=== PATIENT | female | born 1975 | race Caucasian/White ===

== ENCOUNTER 2016-08-27 23:54 | Inpatient (IN) | payer MEDICAID ==
[2016-08-28] MEDS ORDERED: NORMAL SALINE 1000 ML 1,000 ML IV ONE ×2 (00:14→03:47)
[2016-08-28] MEDS ORDERED: ONDANSETRON 4 MG TAB.RAPDIS PO ONE (00:14)
[2016-08-28] MEDS ORDERED: DIPHENHYDRAMINE HCL 50 MG/ML VIAL IV ONE (01:38)
[2016-08-28] MEDS ORDERED: METOCLOPRAMIDE HCL INJ/PF 10 MG/2 ML SDV IV ONE (01:38)
[2016-08-28 01:56] LABS: BLOOD UREA NITROGEN 19 mg/dL (7-20); CALCIUM 9.8 mg/dL (8.4-10.2); CREATININE RESULT 0.57 mg/dL (0.52-1.25); GLUCOSE 208 mg/dL (75-110)
[2016-08-28 01:57] LABS: ALANINE AMINOTRANSFERASE 39 U/L (9-52); ALBUMIN 4.4 g/dL (3.5-5.0); ALKALINE PHOSPHATASE 72 U/L (38-126); ANION GAP 15 (5-19); ASPARTATE AMINO TRANSFERASE 26 U/L (14-36); BILIRUBIN,DIRECT 0.1 mg/dL (0.0-0.4); BILIRUBIN,TOTAL 0.5 mg/dL (0.2-1.3); CARBON DIOXIDE 23 mmol/L (22-30); CHLORIDE 103 mmol/L (98-107); LIPASE 198.4 U/L (23-300); POTASSIUM 3.6 mmol/L (3.6-5.0); SODIUM 140.6 mmol/L (137-145); TOTAL PROTEIN 6.8 g/dL (6.3-8.2)
[2016-08-28 02:00] LABS: HEMATOCRIT 37.1 % (36.0-47.0); HEMOGLOBIN 12.3 g/dL (12.0-15.5); HGB HCT DIFFERENCE -0.2; MEAN CORPUSCULAR HEMOGLOBIN 28.6 pg (27.0-33.4); MEAN CORPUSCULAR HGB CONC 33.3 g/dL (32.0-36.0); MEAN CORPUSCULAR VOLUME 86 fl (80-97); RED BLOOD COUNT 4.31 10^6/uL (3.72-5.28); RED CELL DISTRIBUTION WIDTH 14.5 % (11.5-14.0); WHITE BLOOD COUNT 21.2 10^3/uL (4.0-10.5)
[2016-08-28] MEDS ORDERED: MORPHINE SULFATE 10 MG/ML INJ IV ONE (02:02)
[2016-08-28] MEDS ORDERED: ONDANSETRON HCL INJ/PF 4 MG/2 ML SDV IV ONE (02:02)
[2016-08-28 02:08] LABS: BAND NEUTROPHILS % (MANUAL) 3 % (3-5); BASOPHILS % (MANUAL) 0 % (0-2); EOSINOPHILS % (MANUAL) 0 % (0-6); LYMPHOCYTES % (MANUAL) 13 % (13-45); TOTAL CELLS COUNTED 100
[2016-08-28 02:09] LABS: PLATELET CLUMPS PRESENT; RBC MORPHOLOGY COMMENT NORMO-CYTIC/CHROMIC; TOXIC GRANULATION SLIGHT; TOXIC VACUOLATION PRESENT
[2016-08-28 02:54] LABS: APPEARANCE,URINE CLEAR; BILIRUBIN,URINE NEGATIVE (NEGATIVE); GLUCOSE, URINE >=500 mg/dL (NEGATIVE); KETONES,URINE 20 mg/dL (NEGATIVE); LEUKOCYTE ESTERASE,URINE NEGATIVE (NEGATIVE); NITRITE,URINE NEGATIVE (NEGATIVE); PROTEIN,URINE NEGATIVE (NEGATIVE); URINE SPECIFIC GRAVITY 1.005; UROBILINOGEN,URINE NEGATIVE mg/dL (<2.0)
[2016-08-28 03:12] LABS: URINE BARBITURATES SCREEN NEGATIVE; URINE METHADONE SCREEN NEGATIVE; URINE OPIATES LOW NEGATIVE; URINE PHENCYCLIDINE SCREEN NEGATIVE
[2016-08-28] MEDS ORDERED: HYDROMORPHONE HCL INJ/PF 2 MG/ML AMPULE IV ONE ×2 (03:46→04:01)
[2016-08-28] MEDS ORDERED: PIPERACILLIN/TAZOBACTAM 3.375 GM VIAL IV ONE (04:03)
--- NOTE | 2016-08-28 04:23 | ER Document Report ---
ED GI/ - General Chief Complaint: Nausea/Vomiting Stated Complaint: NAUSEA,VOMITING,ABDOMINAL PAIN Mode of Arrival: Ambulatory Information source: Patient Notes: 41-year-old female presents to the emergency department complaining of upper abdominal pain. Patient reports had intermittently persistent upper abdominal pain that seems to originate in her left upper abdomen and radiates to her right upper abdomen which began approximately 3 days ago. Reports this evening pain became severe and intolerable. Reports associated nausea/vomiting. Denies fever, chest pain, shortness of breath, blood in emesis or stool. TRAVEL OUTSIDE OF THE [place] IN LAST 30 DAYS: No - HPI Patient complains to provider of: Abdominal pain, Vomiting Timing/Duration: Gradual, Worse Quality of pain: Sharp Severity at maximum: Severe Severity in ED: Severe Pain Level: 5 Location: LLQ, RUQ Similar symptoms previously: Yes Recently seen / treated by doctor: No - Related Data Allergies/Adverse Reactions: No Known Allergies Allergy (Verified 08/28/16 00:20) Past Medical History - General Information source: Patient - Social History Smoking Status: Never Smoker Chew tobacco use (# tins/day): No Frequency of alcohol use: None Drug Abuse: None Lives with: Family Family History: Reviewed & Not Pertinent - Past Medical History Cardiac Medical History: Reports: Hx Hypertension Renal/ Medical History: Denies: Hx Peritoneal Dialysis Musculoskeltal Medical History: Reports Hx Musculoskeletal Deformity Psychiatric Medical History: Reports: Hx Anxiety, Hx Bipolar Disorder, Hx Depression Past Surgical History: Reports: Hx Tonsillectomy - Immunizations Hx Diphtheria, Pertussis, Tetanus Vaccination: Yes Review of Systems - Review of Systems Constitutional: No symptoms reported EENT: No symptoms reported Cardiovascular: No symptoms reported Respiratory: No symptoms reported Gastrointestinal: See HPI Genitourinary: No symptoms reported Female Genitourinary: No symptoms reported Musculoskeletal: No symptoms reported Skin: No symptoms reported Hematologic/Lymphatic: No symptoms reported Neurological/Psychological: No symptoms reported -: Yes All other systems reviewed and negative Physical Exam - Vital signs Vitals: Pulse Resp BP Pulse Ox 80 18 150/96 H 94 08/28/16 00:11 08/28/16 00:11 08/28/16 00:11 08/28/16 00:11 - General General appearance: Alert In distress: Mild - Due to pain - HEENT Head: Normocephalic, Atraumatic Eyes: Normal Pupils: PERRL - Respiratory Respiratory status: No respiratory distress Chest status: Nontender Breath sounds: Normal Chest palpation: Normal - Cardiovascular Rhythm: Regular Heart sounds: Normal auscultation Murmur: No Pulses: Normal: Radial Normal capillary refill: Yes - Abdominal Inspection: Normal Distension: No distension Bowel sounds: Normal Tenderness: Tender - Tenderness with palpation to mid upper abdomen and right upper quadrant., Saucedo's sign. No: Nontender, McBurney's point, Guarding, Rebound, Other Organomegaly: No organomegaly - Back Back: Normal, Nontender - Neurological Neuro grossly intact: Yes Cognition: Normal Orientation: AAOx4 Luz Coma Scale Eye Opening: Spontaneous [place] Coma Scale Verbal: Oriented Lu[place] Coma Scale Motor: Obeys Commands [place] Coma Scale Total: 15 Speech: Normal Motor strength normal: LUE, RUE, LLE, RLE Sensory: Normal - Skin Skin Temperature: Warm Skin Moisture: Dry Skin Color: Normal Course - Re-evaluation Re-evalutation: 08/28/16 04:10 Patient hemodynamically stable, reports pain still present but improved after medication. Ultrasound findings suggestive of acute cholecystitis. Leukocytosis on CBC. Dose of Zosyn given in the ED as well as 2 L normal saline bolus. Patient presentation and findings discussed with surgeon manufacturing production manager Dr. Collins who agrees to evaluate patient in the ED and admit. Findings and plan discussed with patient who verbalized understanding and agrees with plan. - Vital Signs Vital signs: Temp Pulse Resp BP Pulse Ox 97.4 F 78 18 112/56 L 100 08/28/16 02:53 08/28/16 02:53 08/28/16 02:53 08/28/16 02:53 08/28/16 02:53 - Laboratory Result Diagrams: 08/28/16 01:33 08/28/16 01:33 Laboratory results interpreted by me: 08/28/16 08/28/16 08/28/16 01:33 01:33 02:35 WBC 21.2 H RDW 14.5 H Seg Neuts % (Manual) 79 H Abs Neuts (Manual) 17.4 H Glucose 208 H Urine Glucose (UA) >=500 H Urine Ketones 20 H - Diagnostic Test Radiology reviewed: Image reviewed, Reports reviewed Discharge - Discharge Clinical Impression: Acute cholecystitis Disposition: ADMITTED OBSERVATION Admitting Provider: Surgicalist - Dr. Collins Unit Admitted: Surgical Floor
[2016-08-28] MEDS ORDERED: KETOROLAC TROMETHAMINE INJ/PF 30 MG/1 ML SDV IV ONE (04:34)
[2016-08-28] MEDS ORDERED: POTASSI CL 20 MEQ/D5NS 1L 1,000 ML IV PRN (04:38)
[2016-08-28] MEDS ORDERED: HYDROMORPHONE HCL INJ/PF 2 MG/ML AMPULE IV PRN ×2 (04:41)
[2016-08-28] MEDS: PANTOPRAZOLE SODIUM 40 MG VIAL IV SCH ×2 (05:38→05:40)
[2016-08-28] MEDS: ONDANSETRON HCL INJ/PF 4 MG/2 ML SDV IV PRN ×3 (05:48→14:34)
--- NOTE | 2016-08-28 07:23 | HISTORY AND PHYSICAL E ---
History and Physical NAME: ALEXIS KEITA : 1975 AGE: 41Y ADMITTED: 08/28/2016 ROOM: ED10 REASON FOR ADMISSION: Abdominal pain, nausea, vomiting. HISTORY OF PRESENT ILLNESS: The patient is a 41-year-old female who has been having intermittent right upper quadrant abdominal pain for the last 3-4 days. Now, her pain has become continuous, starting yesterday. She has had nausea and vomiting. This is the first time this has occurred. She does have irritable bowel disease, and at first thought, it was due to this, but now she realized that it is much different. PAST SURGICAL HISTORY: Tonsillectomy. MEDICAL PROBLEMS: 1. Anxiety. 2. Bipolar depression. 3. Hypertension. 4. Gastroesophageal reflux disease. SOCIAL HISTORY: The patient is . FAMILY HISTORY: Noncontributory. ALLERGIES: None. HABITS: The patient socially uses alcohol, denies any smoking or drug use. REVIEW OF SYSTEMS: A complete review of systems was obtained. Pertinent positives are: CONSTITUTIONAL: Not feeling well. GASTROINTESTINAL: Abdominal pain, nausea, and vomiting. PSYCHOLOGICAL: Anxiety, depression. Twelve-point review of systems was obtained with pertinent positives discussed and all others being negative. PHYSICAL EXAMINATION: VITAL SIGNS: Temperature is 97.4, pulse 78, respirations 18, blood pressure 112/56. GENERAL: The patient is lying in bed. She is in minimal distress. EYES: Nonicteric. NECK: No lymphadenopathy. HEART: Regular. LUNGS: Clear. BACK: Nontender. ABDOMEN: Soft, tender in right upper quadrant. No hernias. EXTREMITIES: No edema, cyanosis. NEUROLOGICAL: Patient appears to be neurologically intact without any deficits. PSYCHOLOGICAL: Patient is coherent, cooperative, and appears to answer questions fully. DIAGNOSTIC DATA: White blood cell count of 21. Ultrasound reveals a thickened wall with gallbladder containing numerous gallstones. Positive Saucedo's sign. The common bile duct was 9 mm at its distal end. ASSESSMENT: 1. Acute right upper quadrant abdominal pain with ultrasound showing gallstones, thickened wall, and positive Saucedo's sign. On physical exam, it is consistent with acute cholecystitis. I recommend the patient undergo a laparoscopic cholecystectomy, possible laparotomy. The risks and possible complications of the procedure have been explained to her and include but not limited to bleeding, infection, anesthesia risk, heart/lung problems, wound healing problems, injuries to abdominal structure causing morbidity, need for further surgery, injury to vascular structures with possible blood transfusion, pneumonia. She accepts the risks and wishes to proceed. No guarantees given or applied. 2. Bipolar, anxiety, and depression on medications. 3. Gastroesophageal reflux disease on medications. PLAN: 1. The patient will be admitted to the hospital. 2. N.P.O. 3. IV fluids. 4. IV antibiotics. 5. Laparoscopic cholecystectomy, possible laparotomy. DICTATING PHYSICIAN: BETTY DE LA TORRE M.D. [id number] PHY#: [id number] ID: [id number] JOB#: [id number] ACCT: [id number] cc:GET CARMONA M.D. >
[2016-08-28] MEDS ORDERED: HYDROMORPHONE HCL INJ/PF 2 MG/ML AMPULE ONE ×2 (09:21)
[2016-08-28] MEDS ORDERED: FENTANYL CITRATE INJ/PF 250 MCG/5 ML AMPULE ONE (09:21)
[2016-08-28] MEDS ORDERED: ONDANSETRON HCL INJ/PF 4 MG/2 ML SDV ONE (09:22)
[2016-08-28] MEDS ORDERED: EPHEDRINE SULFATE INJ 50 MG/1 ML AMPULE ONE (09:22)
[2016-08-28] MEDS ORDERED: DEXAMETHASONE SOD PHOSPHATE INJ 4 MG/1 ML VIAL ONE (09:22)
[2016-08-28] MEDS ORDERED: PROPOFOL INJ 200 MG/20 ML VIAL IV ONE (09:22)
[2016-08-28] MEDS ORDERED: MIDAZOLAM 2 MG/2 ML INJ ONE (09:22)
[2016-08-28] MEDS ORDERED: NEOSTIGMINE METHYLSULFATE 10 MG/10 ML VIAL ONE (09:52)
[2016-08-28] MEDS ORDERED: GLYCOPYRROLATE INJ 0.4 MG/2 ML VIAL ONE (09:52)
[2016-08-28] MEDS ORDERED: KETOROLAC TROMETHAMINE 60 MG/2 ML SDV ONE (09:52)
[2016-08-28] MEDS ORDERED: ROCURONIUM BROMIDE INJ 50 MG/5 ML VIAL IV ONE (09:52)
[2016-08-28] MEDS ORDERED: PIPERACILLIN/TAZOBACTAM 3.375 GM VIAL IV SCH ×2 (10:00)
[2016-08-28] MEDS ORDERED: BUPIVACAINE HCL 0.25% /EPINEPHRINE INJ/PF 30 ML SDV ONE (10:18)
[2016-08-28] MEDS ORDERED: FENTANYL CITRATE INJ/PF 100 MCG/2 ML AMPUL IV PRN ×3 (10:41)
[2016-08-28] MEDS ORDERED: DIPHENHYDRAMINE HCL 50 MG/ML VIAL IV PRN (10:41)
[2016-08-28] MEDS ORDERED: PROMETHAZINE HCL INJ 25 MG/1 ML VIAL IV PRN (10:41)
[2016-08-28] MEDS ORDERED: MEPERIDINE HCL/PF INJ 25 MG/1 ML DISP.SYRIN IV PRN (10:41)
[2016-08-28] MEDS ORDERED: METOCLOPRAMIDE HCL INJ/PF 10 MG/2 ML SDV ONE (12:13)
[2016-08-28] MEDS ORDERED: SCOPOLAMINE HYDROBROMIDE 1.5 MG PATCH.TD72 ONE (12:13)
[2016-08-28] MEDS ORDERED: ACETAMINOPHEN 100 ML IV ONE (12:24)
[2016-08-28] MEDS ORDERED: PROMETHAZINE HCL INJ 25 MG/1 ML VIAL ONE (12:26)
--- NOTE | 2016-08-28 13:08 | OPERATIVE REPORT E ---
Operative Report NAME: ALEXIS KEITA : 1975 AGE: 41Y DATE OF SURGERY: 08/28/2016 ROOM: ED10 PREOPERATIVE DIAGNOSIS: Acute calculus cholecystitis with slightly dilated common bile duct but normal liver function test. POSTOPERATIVE DIAGNOSIS: Acute calculus cholecystitis with slightly dilated common bile duct but normal liver function test. INDICATIONS: This is a 41-year-old female who has been having off and on abdominal pains for the past few months. Last night after eating a fatty meal, developed severe epigastric pain. It started in left upper quadrant, to the epigastric then to the right upper quadrant. Associated with nausea and vomiting. An ultrasound of the gallbladder showed multiple gallstones and acute calculus cholecystitis and common bile duct of 9 mm. Her liver function tests were normal. PROCEDURE DONE: Laparoscopic cholecystectomy and attempted cystic duct cholangiogram. SURGEON: VISHNU WADE M.D. ANESTHESIA: General. DESCRIPTION OF PROCEDURE: Patient was placed in supine position. After adequate general anesthesia, the abdomen was then prepped and draped in the usual sterile fashion. A time out was then performed. A small infraumbilical incision was then made and the fascia identified and stay sutures were placed on each side. A small fascial opening was made while lifting up the stay sutures. Next, the opening was then enlarged with a clamp and a Kunal trocar inserted into the abdominal cavity. The trocar was then stabilized with the use of the stay sutures. Next, CO2 insufflated through the trocar up to a pressure of 15 mmHg. Next, a transverse incision was made at the subxiphoid area and the 12 mm trocar was then inserted under direct vision. Two other 5 mm trocars were placed in the right upper quadrant. Next, the distal end of the gallbladder was then lifted up. There were a lot of adhesions around it and some edema. These adhesions were lysed bluntly and also with the use of harmonic ivett. The infundibulum was then grasped and cystic duct dissected as well as the cystic artery. The cystic duct was noted to be slightly enlarged. A clip was then placed at the takeoff of the cystic duct and cystic duct subsequently partially divided with scissors. Next, a balloon tip cholangiocath was then placed into the cystic area and the balloon inflated. Unfortunately, there appears to be a false lumen develop. At this point, the catheter was then removed and there was some difficulty visualizing the lumen of the cystic duct. I opted not to make another cut further proximal into the cystic duct towards the common bile duct. I felt it may be more dangerous and that the common duct may be injured. Because of this, 3 hemoclips were placed on the cystic duct close to the common bile duct. Also the patient has normal liver function tests, which makes it unlikely to have a common bile duct stone. Next, the cystic duct was then divided. The gallbladder was then dissected and divided with the use of harmonic ivett. Cystic artery identified and clipped with Hemoclips. The gallbladder dissection was then completely carried out with the use of the harmonic ivett. The gallbladder was then removed through the umbilical port inside an endobag. Multiple large stones were palpated thru the endobag. Next, the gallbladder site was then inspected and adequate hemostasis noted. Further irrigation was performed and no evidence of bleeding and the irrigant subsequently suctioned out. All the trocars were then removed and CO2 allowed to come out of the trocar sites. The fascia defect of the infraumbilical area was then closed with [id number] sutures using 0 Vicryl. Two [id number] sutures were used. Next, the skin was then closed with running subcuticular closure using 4-0 Monocryl. The fascia layer was then injected with Marcaine and epinephrine. The subxiphoid incision was then closed with running subcuticular closure using 4-0 Monocryl. A single suture using 0 Vicryl was initially used to close the fascia defect at this site. Next, the 2 right upper quadrant incisions were closed with running subcuticular closure using 4-0 Monocryl and Dermabond was placed over the incisions as a dressing. Needle, instrument, and sponge counts were all correct. Estimated blood loss was minimal. Patient tolerated procedure well and brought to the recovery room in satisfactory condition. DICTATING PHYSICIAN: VISHNU WADE M.D. [id number] PHY#: [id number] ID: [id number] JOB#: [id number] ACCT: [id number] cc:VISHNU WADE M.D. > MTDD
[2016-08-28] MEDS: NORMAL SALINE 1000 ML 1,000 ML IV PRN ×2 (14:34→23:48)
[2016-08-28] MEDS: HYDROMORPHONE HCL INJ/PF 2 MG/ML AMPULE IV PRN (14:34)
[2016-08-28] MEDS: PIPERACILLIN SODIUM/TAZOBACTAM 3.375 GM in NORMAL SALINE 100 ML IV SCH ×2 (17:51→21:19)
[2016-08-29] MEDS: PIPERACILLIN SODIUM/TAZOBACTAM 3.375 GM in NORMAL SALINE 100 ML IV SCH ×4 (02:27→20:33)
[2016-08-29 05:33] LABS: HEMATOCRIT 31.8 % (36.0-47.0); HEMOGLOBIN 10.5 g/dL (12.0-15.5); HGB HCT DIFFERENCE -0.3; MEAN CORPUSCULAR HEMOGLOBIN 28.3 pg (27.0-33.4); MEAN CORPUSCULAR HGB CONC 32.9 g/dL (32.0-36.0); MEAN CORPUSCULAR VOLUME 86 fl (80-97); RED CELL DISTRIBUTION WIDTH 14.9 % (11.5-14.0); WHITE BLOOD COUNT 13.7 10^3/uL (4.0-10.5)
[2016-08-29 05:46] LABS: ALANINE AMINOTRANSFERASE 37 U/L (9-52); ALBUMIN 3.1 g/dL (3.5-5.0); ALKALINE PHOSPHATASE 53 U/L (38-126); AMYLASE 37 U/L (30-110); ANION GAP 10 (5-19); ASPARTATE AMINO TRANSFERASE 26 U/L (14-36); BILIRUBIN,DIRECT 0.2 mg/dL (0.0-0.4); BILIRUBIN,TOTAL 0.5 mg/dL (0.2-1.3); BLOOD UREA NITROGEN 9 mg/dL (7-20); CALCIUM 7.8 mg/dL (8.4-10.2); CARBON DIOXIDE 22 mmol/L (22-30); CHLORIDE 109 mmol/L (98-107); CREATININE RESULT 0.59 mg/dL (0.52-1.25); GLUCOSE 87 mg/dL (75-110); LIPASE 80.3 U/L (23-300); SODIUM 140.8 mmol/L (137-145); TOTAL PROTEIN 5.4 g/dL (6.3-8.2)
[2016-08-29] MEDS: HYDROMORPHONE HCL INJ/PF 2 MG/ML AMPULE IV PRN ×4 (06:58→17:45)
[2016-08-29] MEDS ORDERED: POTASSIUM CHLORIDE 10 MEQ TABLET.SA PO ONE (07:00)
[2016-08-29] MEDS: POTASSIUM CHLORIDE 20 MEQ/50 ML RTU IV SCH ×2 (07:53→09:23)
[2016-08-29] MEDS: ENOXAPARIN SODIUM INJ 40 MG/0.4 ML DISP.SYRIN SUBCUT SCH (07:53)
[2016-08-29] MEDS: NORMAL SALINE 1000 ML 1,000 ML IV PRN ×2 (08:44→17:52)
--- NOTE | 2016-08-29 15:34 | PDOC PROGRESS REPORT ---
Subjective Subjective:: Tolerating clears Still with some incisional pains K 3.0 WBC still elevated but less than pre-op. Physical Exam Vital Signs: Temp Pulse Resp BP Pulse Ox 98.3 F 68 18 118/70 100 08/29/16 11:18 08/29/16 11:18 08/29/16 11:18 08/29/16 11:18 08/29/16 11:18 Intake & Output 08/28/16 08/29/16 08/30/16 06:59 06:59 06:59 Intake Total 3419 1070 Output Total 970 1000 Balance 2449 70 Weight 88.6 kg GI/Abdominal exam: PRESENT: soft - soft and incisions are clean and dry. Results Laboratory Results: 08/29/16 04:39 08/29/16 04:39 08/29/16 08/29/16 04:39 04:39 WBC 13.7 H RBC 3.70 L Hgb 10.5 L Hct 31.8 L MCV 86 MCH 28.3 MCHC 32.9 RDW 14.9 H Plt Count 292 Sodium 140.8 Potassium 3.0 L* Chloride 109 H Carbon Dioxide 22 Anion Gap 10 BUN 9 Creatinine 0.59 Est GFR ( Amer) > 60 Est GFR (Non-Af Amer) > 60 Glucose 87 Calcium 7.8 L Total Bilirubin 0.5 AST 26 ALT 37 Alkaline Phosphatase 53 Total Protein 5.4 L Albumin 3.1 L Amylase 37 Lipase 80.3 Impressions: Abdomen Ultrasound 08/28/16 02:29 IMPRESSION: Cholelithiasis with poorly defined gallbladder wall, suggesting acute cholecystitis. Prominence of the common bile duct at the level of the head of the pancreas without demonstrated obstructing choledocholith.
[2016-08-29] MEDS: OXYCODONE-ACETAMINOPHEN 5-325 MG TABLET PO PRN (21:44)
[2016-08-30] MEDS: PIPERACILLIN SODIUM/TAZOBACTAM 3.375 GM in NORMAL SALINE 100 ML IV SCH ×2 (02:23→09:46)
[2016-08-30] MEDS: OXYCODONE-ACETAMINOPHEN 5-325 MG TABLET PO PRN ×2 (03:21→09:46)
[2016-08-30] MEDS: ENOXAPARIN SODIUM INJ 40 MG/0.4 ML DISP.SYRIN SUBCUT SCH (07:56)
[2016-08-30] MEDS: PANTOPRAZOLE SODIUM 40 MG VIAL IV SCH (09:46)
[2016-08-30 11:26] VITALS: BP 115/56
--- NOTE | 2016-09-02 08:03 | DISCHARGE SUMMARY E ---
Discharge Summary NAME: ALEXIS KEITA : 1975 AGE: 41Y ADMITTED: 08/28/2016 DISCHARGED: 08/30/2016 REASON FOR ADMISSION: Acute abdominal pain. SUMMARY OF HOSPITALIZATION: The patient is a 41-year-old white female admitted to the surgical service for acute abdominal pain. Workup was found to be consistent with acute cholecystitis without cholelithiasis. The patient was kept on IV fluids, n.p.o., and taken to the operating room where she underwent laparoscopic cholecystectomy; attempt at intraoperative cholangiogram unsuccessful. Postoperatively, the patient did well. She had no complications. Her liver function studies remained normal throughout the hospitalization. By the second postoperative day, she was felt to be ready for discharge home. FINAL DIAGNOSIS: Chronic cholecystitis with cholelithiasis status post laparoscopic cholecystectomy by Dr. Cheney. PLAN: The patient will be discharged home in the care of her family. Follow up with Dr. Juan and/or JOSE Wells, at [facility]. She will resume preoperative medication, diet, and activity. DICTATING PHYSICIAN: RODRIGO JUAN M.D. [id number] PHY#: [id number] ID: [id number] JOB#: [id number] ACCT: [id number] cc:Sandra ZHANG M.D. [facility]fred[facility], > [facility]
== END 2016-08-30 12:02 | disposition other institution (70) | DRG 419 ==
LOC: ER 23:54 → EH 08-28 04:38 → INTOOBSV 08-28 04:54 → EH 08-28 04:54 → UNDOADMOB 08-28 04:54 → OBSVTOIN 08-28 09:30 → 4W 08-28 13:31
PROVIDERS: ATTEND Surgery
PROC: 0FT44ZZ Resection of Gallbladder, Percutaneous Endoscopic Approach (ICD-10-PCS; principal; 2016-08-28 10:15)
DX: K80.00 Calculus of gallbladder with acute cholecystitis without obstruction (principal); F41.9 Anxiety disorder, unspecified; F31.9 Bipolar disorder, unspecified; I10 Essential (primary) hypertension; K21.9 Gastro-esophageal reflux disease without esophagitis; Z79.899 Other long term (current) drug therapy
CPT/HCPCS: 36415; 76705; 790; 80048; 80053; 80076; 80307; 81001; 81025; 82150; 83690; 84703; 85025; 85027; 87040; 88304; 96361; 96365; 96366; 96367; 96375; 96376; 99285; G0378; J0131; J1100; J1170; J1200; J1650; J1885; J2250; J2270; J2405; J2543; J2550; J2704; J2765; J3010; J3480; J3490; J7030; S0119; S0164

== ENCOUNTER → 2016-09-06 | Outpatient (CLI) | payer MEDICAID | LOC: OD 16:59 | PROVIDERS: ATTEND Physician Assistant | DX: R10.10 Upper abdominal pain, unspecified (principal); Z97.5 Presence of (intrauterine) contraceptive device | CPT/HCPCS: 74000 ==

== ENCOUNTER 2017-10-13 18:07 | Emergency (ER) | payer SELFPAY ==
[2017-10-13] MEDS ORDERED: DIPHENHYDRAMINE HCL 25 MG CAPSULE PO ONE (18:39)
[2017-10-13] MEDS ORDERED: METOCLOPRAMIDE HCL 10 MG TABLET PO ONE (18:39)
[2017-10-13] MEDS ORDERED: ACETAMINOPHEN 325 MG TABLET PO ONE (18:39)
--- NOTE | 2017-10-13 18:43 | ER Document Report ---
ED Medical Screen (RME) - General Chief Complaint: Headache >24 hrs old Stated Complaint: HEADACHE/NUMBNESS Time Seen by Provider: 10/13/17 18:39 Mode of Arrival: Ambulatory Information source: Patient Notes: 42-year-old female with a history of hypertension, tension headaches, IBS, seasonal allergies presents with complaint of headache that started 1 day prior to arrival. Headache is diffusely located, described as throbbing and not relieved with Tylenol or Skelaxin. Patient states she does get headaches normally but that this is different than usual. She is complaining of associated left eye numbness. She does admit to increased stress personally due to the fact that her child was taken away from her and is now living with his father. I Have greeted and performed a rapid initial assessment of this patient a comprehensive ED assessment and evaluation of the patient, analysis of test results and completion of medical decision making will be conducted by an additional ED provider. PHYSICAL EXAMINATION: GENERAL: Well-appearing, well-nourished and in no acute distress. HEAD: Atraumatic, normocephalic. EYES: Pupils equal round extraocular movements intact, conjunctiva are normal. NEUROLOGICAL: Normal speech, normal gait. PSYCH: Normal mood, normal affect. SKIN: Warm, Dry, normal turgor, no rashes or lesions noted. TRAVEL OUTSIDE OF THE [place] IN LAST 30 DAYS: No - HPI Onset: Yesterday Onset/Duration: Gradual, Persistent Quality of pain: Throbbing Severity: Moderate Associated Symptoms: Sinus pain/drainage. denies: Cough (productive), Fever Exacerbated by: Denies Relieved by: Denies Similar symptoms previously: Yes Recently seen / treated by doctor: No - Related Data Smoking: Non-smoker Frequency of alcohol use: None Drug Abuse: None Allergies/Adverse Reactions: No Known Allergies Allergy (Verified 10/13/17 18:13) Past Medical History - Social History Chew tobacco use (# tins/day): No Frequency of alcohol use: Occasional Drug Abuse: None - Past Medical History Cardiac Medical History: Reports: Hx Hypertension Renal/ Medical History: Denies: Hx Peritoneal Dialysis Musculoskeltal Medical History: Reports Hx Musculoskeletal Deformity Psychiatric Medical History: Reports: Hx Anxiety, Hx Bipolar Disorder, Hx Depression Past Surgical History: Reports: Hx Tonsillectomy - Immunizations Hx Diphtheria, Pertussis, Tetanus Vaccination: Yes Physical Exam - Vital signs Vitals: Temp Pulse Resp BP Pulse Ox 99.1 F 89 18 123/79 100 10/13/17 18:15 10/13/17 18:15 10/13/17 18:15 10/13/17 18:15 10/13/17 18:15 Course - Vital Signs Vital signs: Temp Pulse Resp BP Pulse Ox 99.1 F 89 18 123/79 100 10/13/17 18:15 10/13/17 18:15 10/13/17 18:15 10/13/17 18:15 10/13/17 18:15
--- NOTE | 2017-10-13 19:28 | ER Document Report ---
ED General - General Chief Complaint: Headache >24 hrs old Stated Complaint: HEADACHE/NUMBNESS Time Seen by Provider: 10/13/17 18:39 Mode of Arrival: Ambulatory - drove herself here Information source: Patient TRAVEL OUTSIDE OF THE [place] IN LAST 30 DAYS: No - HPI Patient complains to provider of: headache "all over" tingling around left eye area Onset: Yesterday - at work Onset/Duration: Gradual Quality of pain: Dull Severity: Moderate Associated symptoms: None Exacerbated by: Denies Relieved by: Denies Similar symptoms previously: Yes Recently seen / treated by doctor: No Notes: She states yesterday while at work she developed a headache "all over". She states that she is tingling around her left eye. She denies fever vomiting, visual changes, numbness, weakness of her extremities or change in mentation. She states she has been under a lot of stress. She states [facility] took her 5-year- old son away from her in May and placed him with the biological father. She states that she talks to the child a few times a week as well as has one weekly visit the supervision of [facility]. She states that for the past 5 days she was unable to get in touch with the biological father to see how her son was doing because he was not answering the phone. She states today she met her father who had the biological son and they were supposed to have a DSS supervised visit. [facility] never showed up but she was able to see her child in the waiting area. She gets tension headaches a few times a month. It usually resolves with Skelaxin. She states she did take that today without good relief. - Related Data Allergies/Adverse Reactions: No Known Allergies Allergy (Verified 10/13/17 18:13) Past Medical History - General Information source: Patient - Social History Smoking Status: Never Smoker Chew tobacco use (# tins/day): No Frequency of alcohol use: Occasional Drug Abuse: None Lives with: Alone Family History: Reviewed & Not Pertinent Patient has suicidal ideation: No Patient has homicidal ideation: No - Past Medical History Cardiac Medical History: Reports: Hx Hypertension - Gestational only Pulmonary Medical History: Reports: None EENT Medical History: Reports: None Neurological Medical History: Reports: Other - Headaches she gets a few times a month usually relieved with Skelaxin. Endocrine Medical History: Reports: None Renal/ Medical History: Reports: None. Denies: Hx Peritoneal Dialysis Malignancy Medical History: Reports: None GI Medical History: Reports: None Musculoskeltal Medical History: Reports Hx Musculoskeletal Deformity Skin Medical History: Reports None Psychiatric Medical History: Reports: Hx Anxiety, Hx Bipolar Disorder, Hx Depression Past Surgical History: Reports: Hx Tonsillectomy - Immunizations Hx Diphtheria, Pertussis, Tetanus Vaccination: Yes Review of Systems - Review of Systems Constitutional: No symptoms reported EENT: No symptoms reported. denies: Eye pain, Eye discharge, Blurred vision, Double vision Cardiovascular: No symptoms reported Respiratory: No symptoms reported Gastrointestinal: No symptoms reported, Other - Positive appetite ate and drank without difficulty today Genitourinary: No symptoms reported Female Genitourinary: No symptoms reported Musculoskeletal: No symptoms reported Skin: No symptoms reported Hematologic/Lymphatic: No symptoms reported Neurological/Psychological: See HPI, Depression, Anxiety, Tingling. denies: Confusion, Dementia, Hallucinations, Sensory change, Homicidal ideation, Weakness, Gait changes, Loss of power, Paralysis, Speech impairment, Numbness, Suicidal ideation, Tremor, Other Physical Exam - Vital signs Vitals: Temp Pulse Resp BP Pulse Ox 99.1 F 89 18 123/79 100 10/13/17 18:15 10/13/17 18:15 10/13/17 18:15 10/13/17 18:15 10/13/17 18:15 - Notes Notes: PHYSICAL EXAMINATION: GENERAL: Well-appearing, well-nourished and in no acute distress. Patient is smiling and laughing while talking to me. HEAD: Atraumatic, normocephalic. EYES: Pupils equal round and reactive to light, extraocular movements intact, conjunctiva are normal. No nystagmus. ENT: Nares patent, oropharynx clear without exudates. Moist mucous membranes. NECK: Normal range of motion, supple without lymphadenopathy. No meningeal signs. LUNGS: Breath sounds clear to auscultation bilaterally and equal. No wheezes rales or rhonchi. HEART: Regular rate and rhythm without murmurs. ABDOMEN: Soft, nontender, nondistended abdomen. No guarding, no rebound. No masses appreciated. Female : deferred Musculoskeletal: Normal range of motion, no pitting or edema. No cyanosis. NEUROLOGICAL: Cranial nerves grossly intact. Normal speech, normal gait. Normal sensory, motor exams PSYCH: Normal mood, normal affect. SKIN: Warm, Dry, normal turgor, no rashes or lesions noted. - HEENT Visual acuity- Right eye: 20/20 Visual acuity- Left eye: 20/20 Visual acuity- Both eyes: 20/15 Corrective lenses worn: No Course - Re-evaluation Re-evalutation: 10/13/17 19:37 Patient states she is feeling somewhat better. The headache is still there but much less. Neal with her the fact that I thought this is stress related. I did talk to her about reasons to come back including fever, visual changes, increased headache or any other concerns. I did give the patient tomorrow off of work so she can try and distress. I talked about ways to distress including meditation, yoga, long walks. Patient verbalized understanding. Denied suicidal homicidal ideation - Vital Signs Vital signs: Temp Pulse Resp BP Pulse Ox 99.1 F 89 18 123/79 100 10/13/17 18:15 10/13/17 18:15 10/13/17 18:15 10/13/17 18:15 10/13/17 18:15 Discharge - Discharge Clinical Impression: Headache, Stress Condition: Stable Disposition: HOME, SELF-CARE Instructions: Cluster Headache ([facility]), Headache ([facility]), Tension Headache ([facility]) Additional Instructions: Emergency department if you have intractable vomiting, change in vision, fevers , worsening of your symptoms or any other concerns. Please follow-up the primary medical doctor within the next 1-2 days. Forms: Return to Work
[2017-10-13 19:32] VITALS: BP 128/74
== END 2017-10-13 19:30 | disposition home or self-care (01) ==
LOC: ER 18:07
DX: R51 Headache (principal); F43.9 Reaction to severe stress, unspecified; R20.2 Paresthesia of skin
CPT/HCPCS: 99284

== ENCOUNTER → 2018-02-06 | Outpatient (CLI) | payer OTHER ==
[2018-02-06 15:02] LABS: ABSOLUTE BASOPHILS # (AUTO) 0.1 10^3/uL (0.0-0.2); ABSOLUTE EOSINOPHILS # (AUTO) 0.3 10^3/uL (0.0-0.6); ABSOLUTE LYMPHOCYTES (AUTO) 2.6 10^3/uL (0.5-4.7); ABSOLUTE MONOCYTES (AUTO) 0.6 10^3/uL (0.1-1.4); ABSOLUTE NEUT (AUTO) 4.8 10^3/uL (1.7-8.2); BASOPHILS % (AUTO) 0.8 % (0-2); EOSINOPHILS % (AUTO) 3.9 % (0-6); HEMATOCRIT 35.8 % (36.0-47.0); MEAN CORPUSCULAR HEMOGLOBIN 30.3 pg (27.0-33.4); MEAN CORPUSCULAR HGB CONC 33.6 g/dL (32.0-36.0); MEAN CORPUSCULAR VOLUME 90 fl (80-97); MONOCYTES % (AUTO) 7.1 % (3-13); PLATELET COUNT 402 10^3/uL (150-450); RED BLOOD COUNT 3.97 10^6/uL (3.72-5.28); RED CELL DISTRIBUTION WIDTH 14.2 % (11.5-14.0); SEGMENTED NEUTROPHILS % (AUTO) 57.2 % (42-78); TOTAL CELLS COUNTED % (AUTO) 100 %; WHITE BLOOD COUNT 8.3 10^3/uL (4.0-10.5)
[2018-02-06 15:21] LABS: ALANINE AMINOTRANSFERASE 20 U/L (9-52); ALKALINE PHOSPHATASE 43 U/L (38-126); ANION GAP 9 (5-19); ASPARTATE AMINO TRANSFERASE 16 U/L (14-36); BILIRUBIN,DIRECT 0.3 mg/dL (0.0-0.4); BILIRUBIN,TOTAL 0.3 mg/dL (0.2-1.3); BLOOD UREA NITROGEN 10 mg/dL (7-20); CALCIUM 9.2 mg/dL (8.4-10.2); CARBON DIOXIDE 22 mmol/L (22-30); CHLORIDE 109 mmol/L (98-107); CHOLESTEROL 195.93 mg/dL (0-200); GLUCOSE 84 mg/dL (75-110); SODIUM 140.1 mmol/L (137-145); TOTAL PROTEIN 6.6 g/dL (6.3-8.2); TRIGLYCERIDES 63 mg/dL (<150)
[2018-02-06 15:31] LABS: DIRECT LDL 112 mg/dL (<100)
== END ==
LOC: CCC 14:09
DX: Z13.89 Encounter for screening for other disorder (principal); Z13.220 Encounter for screening for lipoid disorders; Z13.29 Encounter for screening for other suspected endocrine disorder
CPT/HCPCS: 36415; 80053; 80061; 83036; 84443; 85025

== ENCOUNTER 2018-08-26 22:58 | Emergency (ER) | payer SELFPAY ==
[2018-08-26 23:35] LABS: ABSOLUTE BASOPHILS # (AUTO) 0.1 10^3/uL (0.0-0.2); ABSOLUTE EOSINOPHILS # (AUTO) 0.1 10^3/uL (0.0-0.6); ABSOLUTE LYMPHOCYTES (AUTO) 2.5 10^3/uL (0.5-4.7); ABSOLUTE MONOCYTES (AUTO) 0.7 10^3/uL (0.1-1.4); ABSOLUTE NEUT (AUTO) 7.6 10^3/uL (1.7-8.2); BASOPHILS % (AUTO) 0.9 % (0-2); EOSINOPHILS % (AUTO) 0.7 % (0-6); HEMATOCRIT 37.9 % (36.0-47.0); HEMOGLOBIN 12.8 g/dL (12.0-15.5); MEAN CORPUSCULAR HEMOGLOBIN 30.2 pg (27.0-33.4); MEAN CORPUSCULAR HGB CONC 33.8 g/dL (32.0-36.0); MEAN CORPUSCULAR VOLUME 89 fl (80-97); MONOCYTES % (AUTO) 6.7 % (3-13); PLATELET COUNT 394 10^3/uL (150-450); RED BLOOD COUNT 4.24 10^6/uL (3.72-5.28); RED CELL DISTRIBUTION WIDTH 13.6 % (11.5-14.0); SEGMENTED NEUTROPHILS % (AUTO) 68.7 % (42-78); TOTAL CELLS COUNTED % (AUTO) 100 %
[2018-08-26 23:40] LABS: APPEARANCE,URINE SLIGHTLY-CLOUDY; BILIRUBIN,URINE NEGATIVE (NEGATIVE); COLOR,URINE YELLOW; GLUCOSE, URINE NEGATIVE (NEGATIVE); KETONES,URINE NEGATIVE (NEGATIVE); LEUKOCYTE ESTERASE,URINE SMALL (NEGATIVE); NITRITE,URINE NEGATIVE (NEGATIVE); PROTEIN,URINE NEGATIVE (NEGATIVE); URINE SPECIFIC GRAVITY 1.013; UROBILINOGEN,URINE NEGATIVE mg/dL (<2.0)
[2018-08-26 23:45] LABS: ALANINE AMINOTRANSFERASE 30 U/L (9-52); ALKALINE PHOSPHATASE 50 U/L (38-126); ANION GAP 6 (5-19); ASPARTATE AMINO TRANSFERASE 19 U/L (14-36); BILIRUBIN,DIRECT 0.2 mg/dL (0.0-0.4); BILIRUBIN,TOTAL 0.3 mg/dL (0.2-1.3); BLOOD UREA NITROGEN 8 mg/dL (7-20); CALCIUM 9.7 mg/dL (8.4-10.2); CARBON DIOXIDE 31 mmol/L (22-30); CHLORIDE 102 mmol/L (98-107); GLUCOSE 100 mg/dL (75-110); POTASSIUM 3.7 mmol/L (3.6-5.0); SODIUM 139.1 mmol/L (137-145); TOTAL PROTEIN 6.8 g/dL (6.3-8.2)
[2018-08-27] MEDS ORDERED: METOCLOPRAMIDE HCL INJ/PF 10 MG/2 ML SDV IV ONE (03:21)
[2018-08-27] MEDS ORDERED: NORMAL SALINE 1000 ML 1,000 ML IV ONE (03:21)
[2018-08-27] MEDS ORDERED: DIPHENHYDRAMINE HCL 50 MG/ML VIAL IV ONE (03:21)
--- NOTE | 2018-08-27 03:31 | ER Document Report ---
ED General - General Chief Complaint: Nausea/Vomiting/Diarrhea Stated Complaint: BLOOD IN STOOL Time Seen by Provider: 08/27/18 03:01 Notes: Patient is a 43-year-old female who presents with complaint of diarrhea that has been ongoing for about a year. She says is intermittent. She has a history of IBS. She has history of depression and anxiety. She says she was referred to a GI physician but lost her Medicaid and therefore never made a follow-up appointment. She was on hyoscyamine but recently switched to Bentyl. She says since switching to Bentyl she has had intermittent diarrhea and constipation. Last night she noticed some blood in her stool and has noticed some recurring episodes of blood in her stool whenever she has a bowel movement and therefore she came to the ER. She does have some vomiting today. She does have a headache. She says she has recurrent tension headaches. She says this feels similar to her previous headaches. Gradual in onset. Bilateral frontal aspect of her head. She says that she has some mild soreness to her upper abdomen. No fevers. No other complaints at this time. No focal weakness or numbness. TRAVEL OUTSIDE OF THE [place] IN LAST 30 DAYS: No - Related Data Allergies/Adverse Reactions: No Known Allergies Allergy (Verified 08/26/18 23:01) Past Medical History - Social History Smoking Status: Unknown if Ever Smoked Frequency of alcohol use: None Drug Abuse: None Family History: Reviewed & Not Pertinent - Past Medical History Cardiac Medical History: Reports: Hx Hypertension - Gestational only Renal/ Medical History: Denies: Hx Peritoneal Dialysis Musculoskeletal Medical History: Reports Hx Musculoskeletal Deformity Psychiatric Medical History: Reports: Hx Anxiety, Hx Bipolar Disorder, Hx Depression Past Surgical History: Reports: Hx Tonsillectomy - Immunizations Hx Diphtheria, Pertussis, Tetanus Vaccination: Yes Review of Systems - Review of Systems Notes: My Normal Review Basic REVIEW OF SYSTEMS: CONSTITUTIONAL : Denies fever, chills, or sweats. Denies recent illness. EENT: Denies eye, ear, throat, or mouth pain or symptoms. Denies nasal or sinus congestion. CARDIOVASCULAR: Denies chest pain. RESPIRATORY: Denies cough, cold, or chest congestion. Denies shortness of breath, difficulty breathing, or wheezing. GASTROINTESTINAL: Some mild intermittent abdominal pain. Vomiting and diarrhea. MUSCULOSKELETAL: Denies neck or back pain or joint pain or swelling. SKIN: Denies rash or skin lesions. HEMATOLOGIC : Denies easy bruising or bleeding. NEUROLOGICAL: Denies altered mental status or loss of consciousness. Has a headache. Denies weakness or paralysis or loss of use of either side. Denies problems with gait or speech. Denies sensory or motor loss. PSYCHIATRIC: History of depression ALL OTHER SYSTEMS REVIEWED AND NEGATIVE. Physical Exam - Vital signs Vitals: Temp Pulse Resp BP Pulse Ox 98 F 77 18 140/96 H 100 08/26/18 23:02 08/26/18 23:02 08/26/18 23:02 08/26/18 23:02 08/26/18 23:02 - Notes Notes: General Appearance: Well nourished, alert, cooperative, no acute distress, no obvious discomfort. Well-appearing. Vitals: reviewed, See vital signs table. Head: no swelling or tenderness to the head Eyes: PERRL, EOMI, Conjuctiva clear Mouth: No decreasd moisture Lungs: No wheezing, No rales, No rhonci, No accessory muscle use, good air e xchange bilaterally. Heart: Normal rate, Regular rythm, No murmur, no rub Abdomen: Normal BS, soft, No rigidity, No abdominal tenderness, No guarding, no rebound, no abdominal masses, no organomegaly Rectal exam: Small red inflamed hemorrhoid. Extremities: strength 5/5 in all extremities, good pulses in all extremities, no swelling or tenderness in the extremities, no edema. Skin: warm, dry, appropriate color, no rash Neuro: speech clear, oriented x 3, normal affect, responds appropriately to qu estions. Cranial nerves II through XII are intact. Distal sensation intact. Patient moves all extremities without difficulty. Course - Re-evaluation Re-evalutation: 08/27/18 04:48 Patient's headache and nausea is gone now after the Reglan. She feels well and looks well. I will prescribe her Reglan as this seemed to help. I do not suspect subarachnoid hemorrhage as this headache is very similar to previous headaches in location and character and also its gradual in onset. She does have a history of IBS. I suspect this is why she is having alternating diarrhea and constipation. I suspect blood she is on her stools related to the hemorrhoid that she has on exam. I encouraged her to follow-up with her doctor. I encouraged her return to ER immediately if she has fevers, intractable vomiting, increasing bloody stools, or she feels unwell. I will have her hold the Bentyl and try the Reglan to see if this helps. Patient agrees with plan will be discharged home. Dictation of this chart was performed using voice recognition software; therefore, there may be some unintended grammatical errors. - Vital Signs Vital signs: Temp Pulse Resp BP Pulse Ox 97.6 F 71 16 119/79 98 08/27/18 04:34 08/27/18 04:34 08/27/18 04:34 08/27/18 04:34 08/27/18 04:34 - Laboratory Result Diagrams: 08/26/18 23:10 08/26/18 23:10 Laboratory results interpreted by me: 08/26/18 08/26/18 08/26/18 23:10 23:10 23:10 WBC 11.0 H Carbon Dioxide 31 H Ur Leukocyte Esterase SMALL H Discharge - Discharge Clinical Impression: Vomiting and diarrhea Headache Qualifiers: Headache type: unspecified Headache chronicity pattern: acute headache Intractability: not intractable Qualified Code(s): R51 - Headache Hemorrhoid Qualifiers: Hemorrhoid type: unspecified Qualified Code(s): K64.9 - Unspecified hemorrhoids Condition: Good Disposition: HOME, SELF-CARE Additional Instructions: Please have a low threshold to return to the ER immediately if you have severe pain, intractable vomiting, increasing amounts of blood in your stool, or if you feel that you are worsening. I have prescribed you Reglan to help with your headaches and vomiting. You blood work did not show any concerning findings. You do have a hemorrhoid. Please buy over the counter Tucks pads and use them as directed on the box to help with the hemorrhoid. Prescriptions: Metoclopramide HCl [Reglan 10 mg Tablet] 1 tab PO ASDIR PRN #25 tablet PRN Reason:
[2018-08-27 04:36] VITALS: BP 119/79
== END 2018-08-27 05:06 | disposition home or self-care (01) ==
LOC: ER 22:58
DX: R11.2 Nausea with vomiting, unspecified (principal); R19.7 Diarrhea, unspecified; R51 Headache; K64.9 Unspecified hemorrhoids
CPT/HCPCS: 99284; 96361; 96374; 96375; 36415; 85025; 80053; 81001; J1200; J2765; J7030

== ENCOUNTER → 2018-12-05 | Outpatient (CLI) | payer SELFPAY ==
[2018-12-05 15:23] LABS: HEMATOCRIT 36.4 % (36.0-47.0); HEMOGLOBIN 12.4 g/dL (12.0-15.5); MEAN CORPUSCULAR HEMOGLOBIN 30.2 pg (27.0-33.4); MEAN CORPUSCULAR HGB CONC 33.9 g/dL (32.0-36.0); MEAN CORPUSCULAR VOLUME 89 fl (80-97); PLATELET COUNT 364 10^3/uL (150-450); RED CELL DISTRIBUTION WIDTH 14.3 % (11.5-14.0); WHITE BLOOD COUNT 9.5 10^3/uL (4.0-10.5)
[2018-12-05 15:30] LABS: ALANINE AMINOTRANSFERASE 19 U/L (9-52); ALBUMIN 4.1 g/dL (3.5-5.0); ALKALINE PHOSPHATASE 47 U/L (38-126); ANION GAP 8 (5-19); ASPARTATE AMINO TRANSFERASE 17 U/L (14-36); BILIRUBIN,DIRECT 0.2 mg/dL (0.0-0.4); BILIRUBIN,TOTAL 0.5 mg/dL (0.2-1.3); BLOOD UREA NITROGEN 13 mg/dL (7-20); CALCIUM 9.3 mg/dL (8.4-10.2); CARBON DIOXIDE 23 mmol/L (22-30); CHLORIDE 109 mmol/L (98-107); CREATINE KINASE 41 U/L (30-135); GLUCOSE 86 mg/dL (75-110); POTASSIUM 3.6 mmol/L (3.6-5.0); SODIUM 139.8 mmol/L (137-145); TOTAL PROTEIN 6.4 g/dL (6.3-8.2); TRIGLYCERIDES 81 mg/dL (<150)
[2018-12-05 15:40] LABS: DIRECT LDL 116 mg/dL (<100)
[2018-12-05 15:47] LABS: ALCOHOL < 10 mg/dL (NONE DETECTED)
[2018-12-05 15:53] LABS: URINE AMPHETAMINES SCREEN UNCONFIRMED POSITIVE; URINE BARBITURATES SCREEN NEGATIVE; URINE BENZODIAZEPINES SCREEN NEGATIVE; URINE COCAINE SCREEN NEGATIVE; URINE MARIJUANA (THC) SCREEN UNCONFIRMED POSITIVE; URINE METHADONE SCREEN NEGATIVE; URINE PHENCYCLIDINE SCREEN NEGATIVE
[2018-12-05 16:10] LABS: COLOR,URINE AMBER
[2018-12-05 16:11] LABS: APPEARANCE,URINE SLIGHTLY-CLOUDY; BILIRUBIN,URINE MODERATE (NEGATIVE); GLUCOSE, URINE NEGATIVE (NEGATIVE); KETONES,URINE 25 mg/dL (NEGATIVE); PROTEIN,URINE 30 mg/dL (NEGATIVE); URINE SPECIFIC GRAVITY 1.017
[2018-12-05 16:12] LABS: LEUKOCYTE ESTERASE,URINE NEGATIVE (NEGATIVE); NITRITE,URINE NEGATIVE (NEGATIVE)
== END ==
LOC: LAB 14:49
PROVIDERS: ATTEND Nurse Practitioner Psychiatric/Mental Health
DX: F60.3 Borderline personality disorder (principal)
CPT/HCPCS: 36415; 80053; 80061; 80307; 81001; 82550; 84146; 84443; 85027

== ENCOUNTER → 2019-01-24 | Outpatient (CLI) | payer OTHER ==
[2019-01-24 10:56] LABS: ABSOLUTE EOSINOPHILS # (AUTO) 0.1 10^3/uL (0.0-0.6); ABSOLUTE LYMPHOCYTES (AUTO) 2.2 10^3/uL (0.5-4.7); ABSOLUTE MONOCYTES (AUTO) 0.6 10^3/uL (0.1-1.4); ABSOLUTE NEUT (AUTO) 5.1 10^3/uL (1.7-8.2); BASOPHILS % (AUTO) 0.6 % (0-2); EOSINOPHILS % (AUTO) 1.6 % (0-6); HEMOGLOBIN 11.9 g/dL (12.0-15.5); LYMPHOCYTES % (AUTO) 26.8 % (13-45); MEAN CORPUSCULAR HEMOGLOBIN 30.6 pg (27.0-33.4); MEAN CORPUSCULAR HGB CONC 33.9 g/dL (32.0-36.0); MEAN CORPUSCULAR VOLUME 90 fl (80-97); MONOCYTES % (AUTO) 7.8 % (3-13); PLATELET COUNT 327 10^3/uL (150-450); RED BLOOD COUNT 3.88 10^6/uL (3.72-5.28); RED CELL DISTRIBUTION WIDTH 13.8 % (11.5-14.0); SEGMENTED NEUTROPHILS % (AUTO) 63.2 % (42-78); TOTAL CELLS COUNTED % (AUTO) 100 %; WHITE BLOOD COUNT 8.1 10^3/uL (4.0-10.5)
[2019-01-24 11:31] LABS: ALKALINE PHOSPHATASE 39 U/L (38-126); ANION GAP 9 (5-19); ASPARTATE AMINO TRANSFERASE 14 U/L (14-36); BILIRUBIN,DIRECT 0.3 mg/dL (0.0-0.4); BILIRUBIN,TOTAL 0.4 mg/dL (0.2-1.3); BLOOD UREA NITROGEN 18 mg/dL (7-20); CALCIUM 9.9 mg/dL (8.4-10.2); CARBON DIOXIDE 24 mmol/L (22-30); CHLORIDE 106 mmol/L (98-107); GLUCOSE 88 mg/dL (75-110); POTASSIUM 4.1 mmol/L (3.6-5.0); TOTAL PROTEIN 6.5 g/dL (6.3-8.2)
== END ==
LOC: CCC 10:21
DX: Z13.9 Encounter for screening, unspecified (principal)
CPT/HCPCS: 36415; 80053; 83036; 84443; 85025

== ENCOUNTER → 2020-02-01 | Outpatient (CLI) | payer MEDICAID ==
[2020-02-01 17:16] LABS: ABSOLUTE BASOPHILS # (AUTO) 0.1 10^3/uL (0.0-0.2); ABSOLUTE EOSINOPHILS # (AUTO) 0.2 10^3/uL (0.0-0.6); ABSOLUTE LYMPHOCYTES (AUTO) 2.2 10^3/uL (0.5-4.7); ABSOLUTE MONOCYTES (AUTO) 0.7 10^3/uL (0.1-1.4); ABSOLUTE NEUT (AUTO) 6.7 10^3/uL (1.7-8.2); BASOPHILS % (AUTO) 0.6 % (0-2); EOSINOPHILS % (AUTO) 1.7 % (0-6); HEMOGLOBIN 11.3 g/dL (12.0-15.5); LYMPHOCYTES % (AUTO) 22.1 % (13-45); MEAN CORPUSCULAR HEMOGLOBIN 31.9 pg (27.0-33.4); MEAN CORPUSCULAR HGB CONC 35.3 g/dL (32.0-36.0); MEAN CORPUSCULAR VOLUME 90 fl (80-97); PLATELET COUNT 365 10^3/uL (150-450); RED BLOOD COUNT 3.55 10^6/uL (3.72-5.28); RED CELL DISTRIBUTION WIDTH 14.2 % (11.5-14.0); SEGMENTED NEUTROPHILS % (AUTO) 68.6 % (42-78); TOTAL CELLS COUNTED % (AUTO) 100 %; WHITE BLOOD COUNT 9.8 10^3/uL (4.0-10.5)
[2020-02-01 17:38] LABS: ALKALINE PHOSPHATASE 33 U/L (38-126); ANION GAP 8 (5-19); ASPARTATE AMINO TRANSFERASE 18 U/L (14-36); BILIRUBIN,DIRECT 0.3 mg/dL (0.0-0.4); BILIRUBIN,TOTAL 0.3 mg/dL (0.2-1.3); BLOOD UREA NITROGEN 12 mg/dL (7-20); CALCIUM 9.4 mg/dL (8.4-10.2); CARBON DIOXIDE 24 mmol/L (22-30); CHLORIDE 108 mmol/L (98-107); GLUCOSE 101 mg/dL (75-110); POTASSIUM 3.6 mmol/L (3.6-5.0); TOTAL PROTEIN 6.3 g/dL (6.3-8.2)
[2020-02-01 17:41] LABS: C-REACTIVE PROTEIN < 5.0 mg/L (<10.0)
[2020-02-01 17:55] LABS: ERYTHROCYTE SEDIMENTATION RATE 10 mm/hr (0-20)
== END ==
LOC: OD 16:21
PROVIDERS: ATTEND Physician Assistant
DX: R53.83 Other fatigue (principal); J32.0 Chronic maxillary sinusitis; L72.9 Follicular cyst of the skin and subcutaneous tissue, unspecified
CPT/HCPCS: 36415; 80053; 85025; 85652; 86140

== ENCOUNTER 2020-02-03 16:03 | Emergency (ER) | payer MEDICAID ==
[2020-02-03] MEDS ORDERED: METOCLOPRAMIDE HCL 10 MG TABLET PO ONE (17:09)
[2020-02-03] MEDS ORDERED: NORMAL SALINE 1000 ML 1,000 ML IV ONE (17:09)
[2020-02-03] MEDS ORDERED: DIPHENHYDRAMINE HCL 50 MG/ML VIAL IV ONE (17:09)
--- NOTE | 2020-02-03 17:10 | ER Document Report ---
ED Headache - General Chief Complaint: Headache Stated Complaint: HEADACHE,BACK PAIN,DIARRHEA Time Seen by Provider: 02/03/20 16:45 Primary Care Provider: ROSANA ARORA PA-C [Primary Care Provider] - Follow up in 3-5 days Notes: Patient is a 44-year-old female who presents emergency department with a chief complaint of a headache to bilateral sides of her head. Patient states that she has a history of migraines in the past. Patient is currently on Topamax. Patient also was recently started on antibiotics and was on 2 courses of antibiotics for sinus infection. Patient does have some sinus congestion. Patient was recently tested for COVID-19. She states that she was tested 3 times in all 3 times her COVID test was negative. Patient denies any numbness or tingling. Patient states that she also has been rather stressed lately due to family issues. TRAVEL OUTSIDE OF THE [place] IN LAST 30 DAYS: No - Related Data Allergies/Adverse Reactions: No Known Allergies Allergy (Verified 12/09/18 10:39) Past Medical History - Social History Smoking Status: Never Smoker Frequency of alcohol use: Occasional Drug Abuse: Marijuana Family History: Reviewed & Not Pertinent - Past Medical History Cardiac Medical History: Reports: Hx Hypertension - Gestational only Renal/ Medical History: Denies: Hx Peritoneal Dialysis Musculoskeletal Medical History: Reports Hx Musculoskeletal Deformity Psychiatric Medical History: Reports: Hx Anxiety, Hx Bipolar Disorder, Hx Depression Past Surgical History: Reports: Hx Cholecystectomy, Hx Tonsillectomy - Immunizations Hx Diphtheria, Pertussis, Tetanus Vaccination: Yes Review of Systems - Review of Systems Notes: REVIEW OF SYSTEMS: CONSTITUTIONAL : Denies recent illness. Denies recent unintentional weight loss. Denies fever, chills, or sweats. EENT: Denies eye, ear, throat, or mouth pain, discharge, or symptoms. See HPI. CARDIOVASCULAR: Denies chest pain. RESPIRATORY: Denies shortness of breath, cough, congestion, difficulty breathing, or wheezing. GASTROINTESTINAL: Denies nausea, vomiting, and diarrhea. Denies abdominal pain. Denies constipation. GENITOURINARY: Denies difficulty urinating, burning, blood in urine, urgency or frequency. MUSCULOSKELETAL: Denies neck and back pain. Denies joint pain or swelling. SKIN: Denies rash, itchiness, or lesions HEMATOLOGIC : Denies easy bruising or bleeding. LYMPHATIC: Denies swollen, painful, enlarged glands. NEUROLOGICAL: See HPI. PSYCHIATRIC: See HPI. All other systems reviewed and negative. Physical Exam - Vital signs Vitals: Temp Pulse Resp BP Pulse Ox 99.5 F 90 20 131/79 H 100 02/03/20 16:22 02/03/20 16:22 02/03/20 16:22 02/03/20 16:22 02/03/20 16:22 - Notes Notes: PHYSICAL EXAMINATION: GENERAL: Appears well, healthy, well-nourished, no acute distress. HEAD: Normocephalic, atraumatic. EYES: PERRL, conjunctiva normal, all extraocular movements intact, sclera nonicteric ENT: Moist mucous membranes. NECK: Supple, no noticeable swelling, redness, rash. Normal range of motion. LUNGS: Equal breath sounds bilaterally and clear to auscultation. No wheezes rales or rhonchi. CARDIOVASCULAR: S1-S2, regular rate, regular rhythm. Radial pulses 2+, normal. ABDOMEN: Normoactive bowel sounds. Soft, mildly tender, no guarding, no rebound tenderness, and no masses palpated. EXTREMITIES: Normal strength and range of motion, no pitting or edema. No cyanosis. NEUROLOGICAL: Moves all extremities upon command. Strength 5/5 in all extremities. PSYCH: Normal mood, normal affect. SKIN: Warm, dry. No rash, lesions, ulcerations noted. Normal skin turgor. Course - Re-evaluation Re-evalutation: 02/03/20 19:13 Patient has trace bacteria and turbid urine on her urinalysis. Hematology shows a slight leukocytosis of 11,200. There is a mild left shift with neutrophils at 70.5. Glucose is 72. Patient was given juice. Based off the patient's urinalysis, will start the patient on antibiotics. States the Reglan and Benadryl helped her with headache and the toradol helped with her back pain. Patient is to follow-up with her primary care provider. Follow-up precautions were given. Verbal discharge instructions were given to the patient. They verbalized understanding. They are stable for discharge. - Vital Signs Vital signs: Temp Pulse Resp BP Pulse Ox 98.3 F 76 18 114/76 100 02/03/20 19:29 02/03/20 19:29 02/03/20 19:29 02/03/20 19:29 02/03/20 19:29 - Laboratory Result Diagrams: 02/03/20 17:38 02/03/20 17:38 Laboratory results interpreted by me: 02/03/20 02/03/20 02/03/20 17:38 17:38 17:38 WBC 11.2 H RDW 14.3 H Chloride 109 H Glucose 72 L Alkaline Phosphatase 36 L Urine Ascorbic Acid 40 H Discharge - Discharge Clinical Impression: Headache Qualifiers: Headache type: unspecified Headache chronicity pattern: unspecified pattern Intractability: not intractable Qualified Code(s): R51 - Headache Urinary tract infection Qualifiers: Urinary tract infection type: site unspecified Hematuria presence: without hematuria Qualified Code(s): N39.0 - Urinary tract infection, site not specified Condition: Stable Disposition: HOME, SELF-CARE Instructions: Urinary Tract Infection ([facility]) Additional Instructions: You were seen today in the emergency department for headache and low back pain. You are being started on Bactrim for a urinary tract infection. Follow-up with your primary care provider in regards to this visit. You were seen today for a migraine headache. Please follow-up with your primary care doctor regarding today's ED visit. Return to emergency department immediately if you develop a headache that gets to its maximum severity within 20 minutes of onset, you pass out, you develop weakness, numbness, changes in your vision, become unable to keep any fluids down for more than 12 hours, or develop a fever greater than 100.4 degrees Fahrenheit. If you develop a similar migraine headache in the future I recommend that you immediately take your diclofenac and 50 mg of Benadryl and go to sleep as quickly as possible. This can often prevent your migraine headache from becoming severe. Stop taking your meloxicam. Your blood sugar was also low. You drank some juice to help with this. Make sure you eat well and drink to make sure you are blood sugar is not too low. Prescriptions: Sulfamethoxazole/Trimethoprim [Bactrim Ds Tablet] 1 each PO BID 5 Days #10 t ablet Diclofenac Sodium [Voltaren 50 mg Tablet.dr] 50 mg PO BID #10 tablet. Referrals: ROSANA ARORA PA-C [Primary Care Provider] - Follow up in 3-5 days
[2020-02-03 18:04] LABS: ABSOLUTE BASOPHILS # (AUTO) 0.1 10^3/uL (0.0-0.2); ABSOLUTE EOSINOPHILS # (AUTO) 0.1 10^3/uL (0.0-0.6); ABSOLUTE LYMPHOCYTES (AUTO) 2.3 10^3/uL (0.5-4.7); ABSOLUTE MONOCYTES (AUTO) 0.7 10^3/uL (0.1-1.4); ABSOLUTE NEUT (AUTO) 7.9 10^3/uL (1.7-8.2); BASOPHILS % (AUTO) 0.8 % (0-2); EOSINOPHILS % (AUTO) 1.3 % (0-6); HEMATOCRIT 38.6 % (36.0-47.0); HEMOGLOBIN 12.8 g/dL (12.0-15.5); MEAN CORPUSCULAR HEMOGLOBIN 30.7 pg (27.0-33.4); MEAN CORPUSCULAR HGB CONC 33.2 g/dL (32.0-36.0); MEAN CORPUSCULAR VOLUME 92 fl (80-97); MONOCYTES % (AUTO) 6.4 % (3-13); PLATELET COUNT 365 10^3/uL (150-450); RED BLOOD COUNT 4.18 10^6/uL (3.72-5.28); RED CELL DISTRIBUTION WIDTH 14.3 % (11.5-14.0); SEGMENTED NEUTROPHILS % (AUTO) 70.5 % (42-78); TOTAL CELLS COUNTED % (AUTO) 100 %; WHITE BLOOD COUNT 11.2 10^3/uL (4.0-10.5)
[2020-02-03 18:05] LABS: AMORPHOUS SEDIMENT,URINE 1+ /HPF; APPEARANCE,URINE TURBID; BILIRUBIN,URINE NEGATIVE (NEGATIVE); COLOR,URINE AMBER; GLUCOSE, URINE NEGATIVE (NEGATIVE); KETONES,URINE NEGATIVE (NEGATIVE); LEUKOCYTE ESTERASE,URINE NEGATIVE (NEGATIVE); NITRITE,URINE NEGATIVE (NEGATIVE); PROTEIN,URINE NEGATIVE (NEGATIVE); URINE SPECIFIC GRAVITY 1.018; UROBILINOGEN,URINE NEGATIVE mg/dL (<2.0)
[2020-02-03 18:20] LABS: ALBUMIN 4.3 g/dL (3.5-5.0); ALKALINE PHOSPHATASE 36 U/L (38-126); ANION GAP 8 (5-19); ASPARTATE AMINO TRANSFERASE 22 U/L (14-36); BILIRUBIN,DIRECT 0.3 mg/dL (0.0-0.4); BILIRUBIN,TOTAL 0.3 mg/dL (0.2-1.3); BLOOD UREA NITROGEN 15 mg/dL (7-20); CALCIUM 9.5 mg/dL (8.4-10.2); CARBON DIOXIDE 24 mmol/L (22-30); CHLORIDE 109 mmol/L (98-107); GLUCOSE 72 mg/dL (75-110); POTASSIUM 4.2 mmol/L (3.6-5.0); TOTAL PROTEIN 6.7 g/dL (6.3-8.2)
[2020-02-03] MEDS ORDERED: KETOROLAC TROMETHAMINE INJ/PF 30 MG/1 ML SDV IV ONE (18:31)
[2020-02-03] MEDS ORDERED: SULFAMETHOXAZOLE/TRIMETHOPRIM 800-160 MG TABLET PO ONE (19:17)
[2020-02-03 19:29] VITALS: BP 114/76
== END 2020-02-03 19:29 | disposition home or self-care (01) ==
LOC: ER 16:03
DX: N39.0 Urinary tract infection, site not specified (principal); R51 Headache; M54.9 Dorsalgia, unspecified; R19.7 Diarrhea, unspecified; R09.81 Nasal congestion
CPT/HCPCS: 99284; 96361; 96374; 96375; 36415; 87086; 85025; 80053; 81001; J1200; J1885; J3490 ×2; J7030